=== PATIENT | male | born 1970 | race Caucasian/White ===

== ENCOUNTER 2023-07-24 07:50 | Emergency (ER) | payer BC ==
[2023-07-24] MEDS ORDERED: FAMOTIDINE 20 MG/2 ML VIAL IV ONE (08:24)
[2023-07-24] MEDS ORDERED: ONDANSETRON 4 MG/2 ML VIAL ONE ×2 (08:24→10:39)
[2023-07-24] MEDS ORDERED: MORPHINE 4 MG/ML SYR ONE (08:24)
[2023-07-24] MEDS ORDERED: NA CHLORIDE 0.9% 1,000 ML ONE (08:25)
[2023-07-24 08:34] LABS: Absolute Lymphocytes (CBC) 1.6 K/uL (0.7-4.9); Hematocrit 44.6 % (39.6-49.0); Lymphocytes % 13.7 % (15.3-44.8); MCV 84.5 fL (80-100); MPV 7.6 fL (7.6-11.3); Platelets 175 thou/uL (152-406); RBC Red Blood Cell Count 5.28 M/uL (4.33-5.43)
[2023-07-24 08:52] LABS: Albumin 4.5 g/dL (3.4-5.0); Bilirubin Total 0.5 mg/dL (0.2-1.0); Potassium 3.7 mEq/L (3.5-5.1); Protein, Total 8.3 g/dL (6.4-8.2)
--- NOTE | 2023-07-24 09:29 | RAD REPORT ---
EXAM DESCRIPTION: CT - Abdomen Pelvis W Contrast - 07/24/2023 9:14 am CLINICAL HISTORY: ABD PAIN COMPARISON: No comparisons TECHNIQUE: Thin cut axial CT imaging of the abdomen and pelvis was performed following intravenous a dministration of 95 mL Isovue 300. Multiplanar reformats were generated and reviewed. All CT scans are performed using dose optimization technique as appropriate and may include automated exposure control or mA/KV adjustment according to patient size. FINDINGS: No suspicious findings in the lung bases. The liver, spleen, and pancreas show no suspicious findings. Gallbladder and biliary tree are also wi thout suspicious finding. Symmetric renal function is seen with no hydronephrosis or suspicious renal mass. No dilated bowel loops or bowel wall thickening. No free air, free fluid or inflammatory stranding. L ower abdominal ventral hernia mesh repair noted. No hernia, mass or bulky lymphadenopathy. The urinar y bladder is without significant finding. No suspicious bony findings. IMPRESSION: No acute intra-abdominal process.
--- NOTE | 2023-07-24 10:08 | ER ---
Nurse's Notes [facility] Name: Adis Hallman Age: 53 yrs Sex: Male : 1970 Arrival Date: 07/24/2023 Time: 07:50 Bed 7 Private MD: Diagnosis: Epigastric abdominal tenderness;Vomiting;Abdominal tenderness Presentation: 07/24 08:05 Chief complaint: Patient states: N/V/D x 3 days post GI study. Coronavirus screen: At this time, the client does not indicate any symptoms associated with coronavirus-19. Ebola Screen: No symptoms or risks identified at this time. Initial Sepsis Screen: Does the patient meet any 2 criteria? No. Patient's initial sepsis screen is negative. Does the patient have a suspected source of infection? No. Patient's initial sepsis screen is negative. Risk Assessment: Do you want to hurt yourself or someone else? Patient reports no desire to harm self or others. Onset of symptoms was July 21, 2023. 08:05 Method Of Arrival: Ambulatory 08:05 Acuity: JERRY 3 hb Triage Assessment: 08:06 General: Appears in no apparent distress. uncomfortable, Behavior is cooperative, hb anxious, restless. Pain: Complains of pain in abdomen Pain currently is 9 out of 10 on a pain scale. Neuro: Level of Consciousness is awake, alert, obeys commands, Oriented to person, place, time, situation. Cardiovascular: Patient's skin is warm and dry. Respiratory: Airway is patent Respiratory effort is even, unlabored, Respiratory pattern is regular, symmetrical. GI: Reports diarrhea, nausea, vomiting. Derm: Skin is pink, warm \T\ dry. Historical: - Allergies: 08:06 No Known Allergies; hb - Home Meds: 08:06 None [Active]; hb - PMHx: 08:06 Hypertensive disorder; hb - Immunization history:: Adult Immunizations unknown. - Social history:: Smoking status: Patient denies any tobacco usage or history of. Screenin:29 [facility] ED Fall Risk Assessment (Adult) History of falling in the last 3 months, ph including since admission No falls in past 3 months (0 pts) Confusion or Disorientation No (0 pts) Intoxicated or Sedated No (0 pts) Impaired Gait No (0 pts). Abuse screen: Denies threats or abuse. Denies injuries from another. Nutritional screening: No deficits noted. Tuberculosis screening: No symptoms or risk factors identified. Assessment: 08:35 General: Appears in no apparent distress. uncomfortable, Behavior is calm, cooperative, ph appropriate for age. Pain: Complains of pain in epigastric area, right upper quadrant and left upper quadrant. Neuro: Puentes Agitation-Sedation Scale (RASS): +1 Restless Level of Consciousness is awake, alert, obeys commands, Oriented to person, place, time, situation. 09:45 Reassessment: Patient appears in no apparent distress at this time. Patient and/or hb family updated on plan of care and expected duration. Pain level reassessed. Patient is alert, oriented x 3, equal unlabored respirations, skin warm/dry/pink. Vital Signs: 08:05 BP 188 / 107; Pulse 51; Resp 17; Temp 98.1; Pulse Ox 100% ; Weight 81.65 kg; Height 5 hb ft. 9 in. ; Pain 9/10; 08:37 BP 124 / 96; Pulse 54; Resp 18; Pulse Ox 98% on R/A; ph 09:45 BP 128 / 88; Pulse 56; Resp 16; Pulse Ox 100% ; hb 10:30 BP 129 / 78; Pulse 58; Resp 18; Temp 97.9; Pulse Ox 99% on R/A; ph 08:05 Body Mass Index 26.58 (81.65 kg, 175.26 cm) hb 08:05 Pain Scale: Adult hb ED Course: 07:52 Patient arrived in ED. mr 07:57 eTjas Hayden MD is Attending Physician. [facility] 08:00 Kaitlynn Gonzales, RN is Primary Nurse. ph 08:06 Triage completed. hb 08:06 Arm band placed on right wrist. hb 08:29 CBC with Diff Sent. hb 08:29 CMP Sent. hb 08:29 Lipase Sent. hb 08:33 Initial lab(s) drawn, by me, sent to lab. EKG done, by ED staff, reviewed by Tejas Hayden MD. Inserted saline lock: 22 gauge in right antecubital area, using aseptic technique. Blood collected. 08:37 Patient has correct armband on for positive identification. Placed in gown. Bed in low ph position. Call light in reach. Side rails up X2. Pulse ox on. NIBP on. Door closed. Noise minimized. Warm blanket given. 09:15 CT Abd/Pelvis - IV Contrast Only In Process Unspecified. EDMS 10:07 Antonio Carmichael MD is Referral Physician. mechelle 11:14 No provider procedures requiring assistance completed. IV discontinued, intact, ph bleeding controlled, No redness/swelling at site. Pressure dressing applied. Administered Medications: 08:30 Drug: NS 0.9% IV 1000 ml Route: IV; Rate: 1 bolus; Site: right antecubital; ph 10:00 Follow up: Response: No adverse reaction; IV Status: Completed infusion ph 08:30 Drug: Famotidine IVP 20 mg Route: IVP; Site: right antecubital; ph 08:45 Follow up: Response: No adverse reaction ph 08:30 Drug: Ondansetron IVP 4 mg Route: IVP; Site: right antecubital; ph 08:45 Follow up: Response: No adverse reaction ph 08:30 Drug: morphine IVP or IV 4 mg Route: IVP; Infused Over: 4 mins; Site: right antecubital;ph 08:45 Follow up: Response: No adverse reaction; Pain is decreased ph 10:43 Drug: fentaNYL (PF) IVP 50 mcg Route: IVP; Site: right antecubital; ph 11:00 Follow up: Response: No adverse reaction ph 10:43 Drug: Ondansetron IVP 4 mg Route: IVP; Site: right antecubital; ph 11:00 Follow up: Response: No adverse reaction ph 10:43 Drug: GI Cocktail without - (Maalox PO Suspension 30 ml, Lidocaine Mucous ph Membrane Liquid 2 % 15 ml) Route: PO; 11:00 Follow up: Response: No adverse reaction ph 10:43 Drug: Pantoprazole IVP 40 mg Route: IVP; Site: right antecubital; ph 11:00 Follow up: Response: No adverse reaction ph Medication: 08:33 VIS not applicable for this client. ph Outcome: 10:08 Discharge ordered by . mechelle 11:14 Patient left the ED. ph 11:14 Discharged to home ambulatory, with family. ph 11:14 Condition: good 11:14 Discharge instructions given to patient, family, Instructed on discharge instructions, follow up and referral plans. medication usage, Demonstrated understanding of instructions, follow-up care, medications, Prescriptions given X 2. Signatures: Dispatcher [employer] Tejas Singh MD MD cha Rivera, mr Kaitlynn Gonzales RN RN Patti Mitchell RN RN hb
--- NOTE | 2023-07-24 10:08 | EDPHYS ---
Physician Documentation [facility] Name: Adis Hallman Age: 53 yrs Sex: Male : 1970 Arrival Date: 07/24/2023 Time: 07:50 Bed 7 Private MD: JEANINE Physician Tejas Hayden HPI: 07/24 10:02 This 53 yrs old Male presents to ER via Ambulatory with complaints of mechelle Abdominal Pain, Vomiting. 10:02 The patient presents to the emergency department with nausea, vomiting, that is mechelle intermittent, abdominal pain, of the epigastric area, right upper quadrant and left upper quadrant. Onset: The symptoms/episode began/occurred 1 day(s) ago. Possible causes: unknown. The symptoms are aggravated by food , The symptoms are alleviated by nothing. remaining still. Associated signs and symptoms: The patient has no apparent associated signs or symptoms. Severity of symptoms: At their worst the symptoms were mild in the emergency department the symptoms are unchanged. The patient has experienced similar episodes in the past, a few times. Historical: - Allergies: 08:06 No Known Allergies; hb - Home Meds: 08:06 None [Active]; hb - PMHx: 08:06 Hypertensive disorder; hb - Immunization history:: Adult Immunizations unknown. - Social history:: Smoking status: Patient denies any tobacco usage or history of. ROS: 10:04 Constitutional: Negative for fever, chills, and weight loss, Eyes: Negative for injury, mechelle pain, redness, and discharge, ENT: Negative for injury, pain, and discharge, Neck: Negative for injury, pain, and swelling, Cardiovascular: Negative for chest pain, palpitations, and edema, Respiratory: Negative for shortness of breath, cough, wheezing, and pleuritic chest pain, Back: Negative for injury and pain, : Negative for injury, bleeding, discharge, and swelling, MS/Extremity: Negative for injury and deformity, Skin: Negative for injury, rash, and discoloration, Neuro: Negative for headache, weakness, numbness, tingling, and seizure, Psych: Negative for depression, anxiety, suicide ideation, homicidal ideation, and hallucinations, Allergy/Immunology: Negative for hives, rash, and allergies, Endocrine: Negative for neck swelling, polydipsia, polyuria, polyphagia, and marked weight changes, Hematologic/Lymphatic: Negative for swollen nodes, abnormal bleeding, and unusual bruising. 10:04 Abdomen/GI: Positive for abdominal pain, of the epigastric area, right upper quadrant and left upper quadrant. Exam: 10:04 Constitutional: This is a well developed, well nourished patient who is awake, alert, mechelle and in no acute distress. Head/Face: Normocephalic, atraumatic. Eyes: Pupils equal round and reactive to light, extra-ocular motions intact. Lids and lashes normal. Conjunctiva and sclera are non-icteric and not injected. Cornea within normal limits. Periorbital areas with no swelling, redness, or edema. ENT: Nares patent. No nasal discharge, no septal abnormalities noted. Tympanic membranes are normal and external auditory canals are clear. Oropharynx with no redness, swelling, or masses, exudates, or evidence of obstruction, uvula midline. Mucous membranes moist. Neck: Trachea midline, no thyromegaly or masses palpated, and no cervical lymphadenopathy. Supple, full range of motion without nuchal rigidity, or vertebral point tenderness. No Meningismus. Chest/axilla: Normal chest wall appearance and motion. Nontender with no deformity. No lesions are appreciated. Cardiovascular: Regular rate and rhythm with a normal S1 and S2. No gallops, murmurs, or rubs. Normal PMI, no JVD. No pulse deficits. Respiratory: Lungs have equal breath sounds bilaterally, clear to auscultation and percussion. No rales, rhonchi or wheezes noted. No increased work of breathing, no retractions or nasal flaring. Back: No spinal tenderness. No costovertebral tenderness. Full range of motion. Male : Normal genitalia with no discharge or lesions. Skin: Warm, dry with normal turgor. Normal color with no rashes, no lesions, and no evidence of cellulitis. MS/ Extremity: Pulses equal, no cyanosis. Neurovascular intact. Full, normal range of motion. Neuro: Awake and alert, GCS 15, oriented to person, place, time, and situation. Cranial nerves II-XII grossly intact. Motor strength 5/5 in all extremities. Sensory grossly intact. Cerebellar exam normal. Normal gait. Psych: Awake, alert, with orientation to person, place and time. Behavior, mood, and affect are within normal limits. 10:04 ECG was reviewed by the Attending Physician. 10:04 Abdomen/GI: Inspection: abdomen appears normal, Bowel sounds: normal, Palpation: mild abdominal tenderness, in the epigastric area and left upper quadrant, Liver: no appreciated palpable abnormalities, Hernia: not appreciated. Vital Signs: 08:05 BP 188 / 107; Pulse 51; Resp 17; Temp 98.1; Pulse Ox 100% ; Weight 81.65 kg; Height 5 hb ft. 9 in. ; Pain 9/10; 08:37 BP 124 / 96; Pulse 54; Resp 18; Pulse Ox 98% on R/A; ph 09:45 BP 128 / 88; Pulse 56; Resp 16; Pulse Ox 100% ; hb 10:30 BP 129 / 78; Pulse 58; Resp 18; Temp 97.9; Pulse Ox 99% on R/A; ph 08:05 Body Mass Index 26.58 (81.65 kg, 175.26 cm) hb 08:05 Pain Scale: Adult hb MDM: 07:57 Patient medically screened. [facility] 10:05 Differential diagnosis: Nonspecific abd pain, gastritis, cholecystitis, pancreatitis, mechelle diverticulitis, viral gastroenteritis, gastroenteritis. Data reviewed: vital signs, nurses notes, lab test result(s), EKG, radiologic studies, CT scan. Consideration of Admission/Observation Escalation of care including admission/observation considered. I considered the following discharge prescriptions or medication management in the emergency department Medications were administered in the Emergency Department. See MAR. Independent interpretation of the following test(s) in the Emergency Department EKG: See my EKG interpretation above. Test considered but Not performed:. Care significantly affected by the following chronic conditions: Hypertension. 07/24 07:59 Order name: CBC with Diff; Complete Time: 08:47 [facility] 07/24 07:59 Order name: CMP; Complete Time: 10:51 [facility] 07/24 07:59 Order name: Lipase; Complete Time: 10:51 [facility] 07/24 10:07 Order name: LAB Add On: ALREADY NOTIFIED CHRISTIANE/ SEND LABEL TO LAB eb 07/24 10:11 Order name: Troponin High Sensitivity; Complete Time: 10:51 EDMS 07/24 07:59 Order name: CT Abd/Pelvis - IV Contrast Only; Complete Time: 09:46 [facility] 07/24 07:59 Order name: EKG; Complete Time: 07:59 [facility] 07/24 07:59 Order name: IV Saline Lock; Complete Time: 08: [facility] 07/24 07:59 Order name: Labs collected and sent; Complete Time: [facility] 07/24 07:59 Order name: EKG - Nurse/Tech; Complete Time: : [facility] EC:04 Rate is 50 beats/min. Rhythm is regular. QRS [place] is Normal. NV interval is normal. QRS mechelle interval is normal. QT interval is normal. No Q waves. T waves are Normal. No ST changes noted. Clinical impression: Sinus bradycardia and No evidence of ischemia. Interpreted by me. Reviewed by me. Administered Medications: 08:30 Drug: NS 0.9% IV 1000 ml Route: IV; Rate: 1 bolus; Site: right antecubital; ph 10:00 Follow up: Response: No adverse reaction; IV Status: Completed infusion ph 08:30 Drug: Famotidine IVP 20 mg Route: IVP; Site: right antecubital; ph 08:45 Follow up: Response: No adverse reaction ph 08:30 Drug: Ondansetron IVP 4 mg Route: IVP; Site: right antecubital; ph 08:45 Follow up: Response: No adverse reaction ph 08:30 Drug: morphine IVP or IV 4 mg Route: IVP; Infused Over: 4 mins; Site: right antecubital;ph 08:45 Follow up: Response: No adverse reaction; Pain is decreased ph 10:43 Drug: fentaNYL (PF) IVP 50 mcg Route: IVP; Site: right antecubital; ph 11:00 Follow up: Response: No adverse reaction ph 10:43 Drug: Ondansetron IVP 4 mg Route: IVP; Site: right antecubital; ph 11:00 Follow up: Response: No adverse reaction ph 10:43 Drug: GI Cocktail without - (Maalox PO Suspension 30 ml, Lidocaine Mucous ph Membrane Liquid 2 % 15 ml) Route: PO; 11:00 Follow up: Response: No adverse reaction ph 10:43 Drug: Pantoprazole IVP 40 mg Route: IVP; Site: right antecubital; ph 11:00 Follow up: Response: No adverse reaction ph Disposition Summary: 07/24/23 10:08 Discharge Ordered Location: Home mechelle Problem: new mechelle Symptoms: have improved mechelle Condition: Stable mechelle Diagnosis - Epigastric abdominal tenderness mechelle - Vomiting mechelle - Abdominal tenderness mechelle Followup: mechelle - With: Private Physician - When: 2 - 3 days - Reason: Recheck today's complaints, Continuance of care, Re-evaluation by your physician Followup: mechelle - With: Antonio Carmichael MD - When: 2 - 3 days - Reason: Recheck today's complaints, Re-evaluation by your physician Discharge Instructions: - Discharge Summary Sheet mechelle - Abdominal Pain, Adult mechelle - Nausea and Vomiting, Adult mechelle - Nausea and Vomiting, Adult, [id number] mechelle - Abdominal Pain, Adult, [id number] [facility] Forms: - Medication Reconciliation Form [facility] - Thank You Letter [facility] - Antibiotic Education [facility] - Prescription Opioid Use mechelle - Patient Portal Instructions [facility] - Leadership Thank You Letter [facility] Prescriptions: - ondansetron 4 mg Oral Tablet,disintegrating - take 1 tablet by ORAL route every 6-8 hours for 5 days as needed for nausea and mechelle vomiting; 20 tablet; Refills: 0, Product Selection Permitted - Protonix 40 mg Oral Tablet - take 1 tablet by ORAL route once daily; 30 tablet; Refills: 0, Product [facility] Selection Permitted - dicyclomine 10 mg/5 mL Oral Solution - take 10 milliliters by ORAL route 4 times per day; 200 milliliter; Refills: 0, mechelle Product Selection Permitted Signatures: Dispatcher [employer] Tejas Singh MD MD cha Hall, Patricia, RN RN Patti Mitchell RN RN
[2023-07-24] MEDS ORDERED: MAGNES/ALUMIN/SIMET 30ML UCUP ONE (10:38)
[2023-07-24] MEDS ORDERED: FENTANYL CITR 100 MCG/2 ML ONE (10:39)
[2023-07-24] MEDS ORDERED: PANTOPRAZOLE 40 MG INJ ONE (10:40)
[2023-07-24 11:33] VITALS: TEMP 98.1
[2023-07-24 11:44] VITALS: BP 128/88; O2SAT 100
--- NOTE | 2023-07-25 12:15 | EKG ---
Test Date: 2023-07-24 Test Time: 08:22:32 Rn Or Lvn: HB MEASUREMENT RESULTS: Intervals: Rate: 50 OK: 136 QRSD: 94 QT: 420 QTc: 382 [place]: P: 10 OK: 136 QRS: 74 T: 89 INTERPRETIVE STATEMENTS: Sinus bradycardia Nonspecific ST abnormality Abnormal ECG No previous ECG available for comparison Electronically Signed On 07-25-23 12:12:48 CDT by Vishnu Shaffer
== END 2023-07-24 11:14 | disposition home or self-care (01) ==
LOC: ER 07:50 → EDBD 07:50 → ER 11:14
DX: R10.816 Epigastric abdominal tenderness (principal); R11.10 Vomiting, unspecified; I10 Essential (primary) hypertension
CPT/HCPCS: 96361; 93005; 85025; 36415; 84484; 83690; 80053; 74177; 96375; 96374; 99285; Q9967; C9113; J3010; J2405 ×2; J7030

== ENCOUNTER 2023-07-26 04:08 | Emergency (ER) | payer BC ==
--- OUTSIDE RECORDS SUMMARY | 2023-07-26 04:11 | XMS REPORT | Continuity of Care Document ---
:1970 Author Organization [facility] t Address [address] [place] [address] [address] [place] [address] Care Team Providers Name Role Phone JAIME TELLO Primary Care Physician Unavailable DR JAIME TELLO Attending Clinician Unavailable [phone] Attending Clinician Unavailable VIKI BRUSH Attending Clinician Unavailable CORI TA Attending Clinician Unavailable dot Attending Clinician Unavailable JAIME TELLO Attending Clinician Unavailable JALEN WEATHERS Attending Clinician Unavailable OLIVIA MAHAJAN Attending Clinician Unavailable DR JAIME TELLO Admitting Clinician Unavailable dot Admitting Clinician Unavailable Payers Payer Name Policy Type Policy Number Effective Date Expiration Date S jon [facility] [id number] [facility] - [id number] CHOICE PLUS Problems This patient has no known problems. Allergies, Adverse Reactions, Alerts This patient has no known allergies or adverse reactions. Medications This patient has no known medications. Procedures This patient has no known procedures. Encounters Start End Encounter Admission Attending Care Care Encounter Source Date/Time Date/Time Type Type Clinicians Facility Department ID 2023-05-03 Outpatient JAIME TELLO [facility] 00 [id number] El 14:53:38 [id number] [facility] 2023-07-24 2023-07-24 emergency [id number] 06:53:00 07:08:00 [id number] 2023-07-24 2023-07-24 Emergency ER CATANESCU, [facility] [id number] [place] 06:53:00 07:08:00 VIKI [id number] formerly [facility] 2023-05-17 2023-05-17 Outpatient CORI WHIPPLE [facility] [id number] [place] 11:01:00 11:01:00 [id number] formerly [facility] 2023-05-03 2023-05-03 [facility] [id number] 14:54:00 14:54:00 [id number] [facility] 2020-10-15 2020-10-15 Outpatient agapito [facility] [id number] [place] 02:40:00 02:40:00 [facility] 2019-08-23 2019-08-23 Outpatient SEB TELLO [facility] [id number] [place] 08:03:00 08:03:00 JAIME [id number] formerly [facility] 2018-08-14 2018-08-14 Outpatient SEB TELLO [facility] [id number] [place] 08:45:00 08:45:00 JAIME [id number] formerly [facility] 2016-07-26 2016-07-26 Outpatient SEB TELLO [facility] [id number] [place] 11:31:00 11:31:00 JAIME [id number] formerly [facility] 2016-03-22 2016-03-22 Emergency ER OWALON HarveyS [facility] [id number] [place] 18:45:00 20:23:00 [id number] formerly [facility] 2014-07-24 2014-07-24 Outpatient SEB TELLO [facility] [id number] [place] 07:24:00 07:24:00 JAIME [id number] formerly [facility] 2014-02-27 2014-02-27 Outpatient SEB MAHAJAN, [facility] [id number] [place] 13:46:00 13:46:00 OLIVIA -[id number] formerly [facility] Results This patient has no known results.
[2023-07-26] MEDS ORDERED: DIPHENHYDRAMINE 50 MG/ML VIAL ONE (04:38)
[2023-07-26] MEDS ORDERED: FAMOTIDINE 20 MG/2 ML VIAL IV ONE (04:38)
[2023-07-26] MEDS ORDERED: METHYLPREDNISOLONE 125 MG INJ ONE (04:38)
[2023-07-26] MEDS ORDERED: predniSONE 20 MG TAB ONE (04:38)
[2023-07-26] MEDS ORDERED: NA CHLORIDE 0.9% 1,000 ML ONE (04:39)
[2023-07-26] MEDS ORDERED: ONDANSETRON 4 MG/2 ML VIAL ONE (04:49)
--- NOTE | 2023-07-26 04:55 | ER ---
Nurse's Notes [facility] Name: Adis Hallman Age: 53 yrs Sex: Male : 1970 Arrival Date: 07/26/2023 Time: 04:08 Bed 5 Private MD: Diagnosis: Urticaria, unspecified;Allergy status to unspecified drugs, medicaments and biological substances status-BENTYL/DICYCLOMINE Presentation: 07/26 04:20 Chief complaint: Patient states: I just started taking Bentyl and about 30 minutes vc1 after I took one I started itching then I broke out in hives. It happened about 30 hours ago but now it has spread to my face and lips so I thought it was time to come in. 04:20 Coronavirus screen: Vaccine status: Patient reports being unvaccinated. Client denies vc1 travel out of the [place] in the last 14 days. At this time, the client does not indicate any symptoms associated with coronavirus-19. Ebola Screen: Patient negative for fever greater than or equal to 101.5 degrees Fahrenheit, and additional compatible Ebola Virus Disease symptoms Patient denies exposure to infectious person. Patient denies travel to an Ebola-affected area in the 21 days before illness onset. No symptoms or risks identified at this time. Onset: The symptoms/episode began/occurred gradually, 30 hour(s) ago, and became worse last night. Anaphylaxis evaluation, no signs or symptoms of anaphylaxis were noted. Initial Sepsis Screen: Does the patient meet any 2 criteria? No. Patient's initial sepsis screen is negative. Does the patient have a suspected source of infection? No. Patient's initial sepsis screen is negative. Risk Assessment: Do you want to hurt yourself or someone else? Patient reports no desire to harm self or others. Onset of symptoms was July 24, 2023. 04:20 Method Of Arrival: Ambulatory vc1 04:20 Acuity: JERRY 3 vc1 Triage Assessment: 04:20 General: Appears in no apparent distress. uncomfortable, Behavior is calm, cooperative, vc1 appropriate for age. Pain: Complains of pain in all over from hives and swelling. EENT: No deficits noted. No signs and/or symptoms were reported regarding the EENT system. Neuro: Level of Consciousness is awake, alert, obeys commands, Oriented to person, place, time, situation, Appropriate for age. Cardiovascular: No deficits noted. Respiratory: Airway is patent Respiratory effort is even, unlabored, Respiratory pattern is regular, symmetrical. GI: No deficits noted. No signs and/or symptoms were reported involving the gastrointestinal system. : No deficits noted. No signs and/or symptoms were reported regarding the genitourinary system. Derm: Rash noted that is itchy, urticaria, Reports itching, pain that is 5 out of 10 on a pain scale. Musculoskeletal: No deficits noted. No signs and/or symptoms reported regarding the musculoskeletal system. Historical: - Allergies: 04:20 Bentyl (Hives); vc1 - PMHx: 04:20 Hypertensive disorder; Chron's disease; Diverticulitis; vc1 - PSHx: 04:20 Hernia repair; vc1 - Immunization history:: Client reports having NOT received the Covid vaccine. - Social history:: Smoking status: Patient denies any tobacco usage or history of. Patient uses street drugs, marijuana. - Family history:: not pertinent. Screenin:20 [facility] ED Fall Risk Assessment (Adult) History of falling in the last 3 months, vc1 including since admission No falls in past 3 months (0 pts) Confusion or Disorientation No (0 pts) Intoxicated or Sedated No (0 pts) Impaired Gait No (0 pts) Mobility Assist Device Used No (0 pt) Altered Elimination No (0 pt) Score/Fall Risk Level 0 - 2 = Low Risk Oriented to surroundings, Maintained a safe environment, Educated pt \T\ family on fall prevention, incl call for assistance when getting out of bed. Abuse screen: Denies threats or abuse. Nutritional screening: No deficits noted. Tuberculosis screening: No symptoms or risk factors identified. Vital Signs: 04:20 BP 139 / 66; Pulse 76; Resp 19; Temp 98.2; Pulse Ox 98% ; Weight 81.65 kg; Height 5 ft. vc1 9 in. ; Pain 5/10; 04:45 BP 132 / 78; Pulse 74; Resp 18; Pulse Ox 99% ; vc1 04:20 Body Mass Index 26.58 (81.65 kg, 175.26 cm) vc1 04:20 Pain Scale: Adult vc1 ED Course: 04:10 Patient arrived in ED. ag3 04:11 Tejas Hayden MD is Attending Physician. mechelle 04:20 Arm band placed on left wrist. vc1 04:20 Patient has correct armband on for positive identification. Bed in low position. Adult vc1 w/ patient. Pulse ox on. NIBP on. 04:30 Inserted saline lock: 20 gauge in right antecubital area, using aseptic technique. vc1 Blood collected. 04:52 Triage completed. vc1 06:20 No provider procedures requiring assistance completed. IV discontinued, intact, vc1 bleeding controlled, No redness/swelling at site. Pressure dressing applied. 06:21 Provided Education on: return to ER if use Epi pen. vc1 Administered Medications: 04:30 Drug: NS 0.9% IV 1000 ml Route: IV; Rate: 1 bolus; Site: right antecubital; vc1 04:30 Drug: diphenhydrAMINE IVP 50 mg Route: IVP; Site: right antecubital; vc1 04:30 Drug: Famotidine IVP 40 mg Route: IVP; Site: right antecubital; vc1 04:30 Drug: MethylPrednisoLONE IVP 125 mg Route: IVP; Site: right antecubital; vc1 04:30 Drug: predniSONE PO 60 mg Route: PO; vc1 04:35 Drug: Ondansetron IVP 4 mg Route: IVP; Site: right antecubital; vc1 Medication: 04:57 VIS not applicable for this client. vc1 Outcome: 04:55 Discharge ordered by . [facility] [place] 06:20 Discharged to home ambulatory, with significant other. vc1 06:20 Condition: good 06:20 Discharge instructions given to patient, Instructed on discharge instructions, follow up and referral plans. medication usage, Demonstrated understanding of instructions, follow-up care, medications, Prescriptions given X 4. 06:21 Patient left the ED. vc1 Signatures: Tejas Hayden MD MD cha Gomez, Alice ag3 Fanta Llamas, RN RN vc1
--- NOTE | 2023-07-26 04:56 | EDPHYS ---
Physician Documentation [facility] Name: Adis Hallman Age: 53 yrs Sex: Male : 1970 Arrival Date: 07/26/2023 Time: 04:08 Bed 5 Private MD: ED Physician Tejas Hayden HPI: 07/26 04:49 This 53 yrs old Male presents to ER via Unassigned with complaints of Facial mechelle Swelling, Allergic Reaction. 04:49 The patient presents with difficulty swallowing, diffuse swelling, rash, redness of mechelle skin, swelling of the lips. Onset: The symptoms/episode began/occurred 1 day(s) ago. Associated signs and symptoms: The patient has no apparent associated signs or symptoms. Possible causes: bentyl. At home the patient or guardian has treated the symptoms with nothing. Severity of symptoms: At their worst the symptoms were mild moderate in the emergency department the symptoms are unchanged. The patient has not experienced similar symptoms in the past. Historical: - Allergies: 04:20 Bentyl (Hives); vc1 - PMHx: 04:20 Hypertensive disorder; Chron's disease; Diverticulitis; vc1 - PSHx: 04:20 Hernia repair; vc1 - Immunization history:: Client reports having NOT received the Covid vaccine. - Social history:: Smoking status: Patient denies any tobacco usage or history of. Patient uses street drugs, marijuana. - Family history:: not pertinent. ROS: 04:50 Constitutional: Negative for fever, chills, and weight loss, Eyes: Negative for injury, mechelle pain, redness, and discharge, ENT: Negative for injury, pain, and discharge, Neck: Negative for injury, pain, and swelling, Cardiovascular: Negative for chest pain, palpitations, and edema, Respiratory: Negative for shortness of breath, cough, wheezing, and pleuritic chest pain, Abdomen/GI: Negative for abdominal pain, nausea, vomiting, diarrhea, and constipation, Back: Negative for injury and pain, : Negative for injury, bleeding, discharge, and swelling, MS/Extremity: Negative for injury and deformity, Neuro: Negative for headache, weakness, numbness, tingling, and seizure, Psych: Negative for depression, anxiety, suicide ideation, homicidal ideation, and hallucinations, Allergy/Immunology: Negative for hives, rash, and allergies, Endocrine: Negative for neck swelling, polydipsia, polyuria, polyphagia, and marked weight changes, Hematologic/Lymphatic: Negative for swollen nodes, abnormal bleeding, and unusual bruising. 04:50 Skin: Positive for erythema, rash. Exam: 04:50 Constitutional: This is a well developed, well nourished patient who is awake, alert, mechelle and in no acute distress. Head/Face: Normocephalic, atraumatic. Eyes: Pupils equal round and reactive to light, extra-ocular motions intact. Lids and lashes normal. Conjunctiva and sclera are non-icteric and not injected. Cornea within normal limits. Periorbital areas with no swelling, redness, or edema. ENT: Nares patent. No nasal discharge, no septal abnormalities noted. Tympanic membranes are normal and external auditory canals are clear. Oropharynx with no redness, swelling, or masses, exudates, or evidence of obstruction, uvula midline. Mucous membranes moist. Neck: Trachea midline, no thyromegaly or masses palpated, and no cervical lymphadenopathy. Supple, full range of motion without nuchal rigidity, or vertebral point tenderness. No Meningismus. Chest/axilla: Normal chest wall appearance and motion. Nontender with no deformity. No lesions are appreciated. Cardiovascular: Regular rate and rhythm with a normal S1 and S2. No gallops, murmurs, or rubs. Normal PMI, no JVD. No pulse deficits. Respiratory: Lungs have equal breath sounds bilaterally, clear to auscultation and percussion. No rales, rhonchi or wheezes noted. No increased work of breathing, no retractions or nasal flaring. Abdomen/GI: Soft, non-tender, with normal bowel sounds. No distension or tympany. No guarding or rebound. No evidence of tenderness throughout. Back: No spinal tenderness. No costovertebral tenderness. Full range of motion. Male : Normal genitalia with no discharge or lesions. MS/ Extremity: Pulses equal, no cyanosis. Neurovascular intact. Full, normal range of motion. Neuro: Awake and alert, GCS 15, oriented to person, place, time, and situation. Cranial nerves II-XII grossly intact. Motor strength 5/5 in all extremities. Sensory grossly intact. Cerebellar exam normal. Normal gait. Psych: Awake, alert, with orientation to person, place and time. Behavior, mood, and affect are within normal limits. 04:50 Skin: Appearance: Color: erythematous, Temperature: normal temperature, Moisture: normal moisture, petechiae, not noted, ecchymosis, not noted, diaphoresis is not appreciated, urticaria. Vital Signs: 04:20 BP 139 / 66; Pulse 76; Resp 19; Temp 98.2; Pulse Ox 98% ; Weight 81.65 kg; Height 5 ft. vc1 9 in. ; Pain 5/10; 04:45 BP 132 / 78; Pulse 74; Resp 18; Pulse Ox 99% ; vc1 04:20 Body Mass Index 26.58 (81.65 kg, 175.26 cm) vc1 04:20 Pain Scale: Adult vc1 MDM: 04:12 Patient medically screened. [facility] 04:52 Differential diagnosis: bronchospasm, non IgE mediated drug reaction urticaria. Data [facility] reviewed: vital signs, nurses notes, lab test result(s). Consideration of Admission/Observation Escalation of care including admission/observation considered. I considered the following discharge prescriptions or medication management in the emergency department Medications were administered in the Emergency Department. See MAR. Test considered but Not performed: X-ray: no cxr. Care significantly affected by the following chronic conditions: none. Counseling: I had a detailed discussion with the patient and/or guardian regarding the historical points, exam findings, and any diagnostic results supporting the discharge/admit diagnosis, lab results, the need for outpatient follow up, for definitive care, an allergy/sales support specialist, a family practitioner. 07/26 04:12 Order name: CBC with Diff; Complete Time: : [facility] 07/26 04:12 Order name: Comprehensive Metabolic Panel; Complete Time: : [facility] Administered Medications: 04:30 Drug: NS 0.9% IV 1000 ml Route: IV; Rate: 1 bolus; Site: right antecubital; vc1 04:30 Drug: diphenhydrAMINE IVP 50 mg Route: IVP; Site: right antecubital; vc1 04:30 Drug: Famotidine IVP 40 mg Route: IVP; Site: right antecubital; vc1 04:30 Drug: MethylPrednisoLONE IVP 125 mg Route: IVP; Site: right antecubital; vc1 04:30 Drug: predniSONE PO 60 mg Route: PO; vc1 04:35 Drug: Ondansetron IVP 4 mg Route: IVP; Site: right antecubital; vc1 Disposition Summary: 07/26/23 04:55 Discharge Ordered Location: Home [facility] Problem: new [facility] Symptoms: have improved [facility] Condition: Stable [facility] Diagnosis - Urticaria, unspecified [facility] - Allergy status to unspecified drugs, medicaments and biological substances status - mechelle BENTYL/DICYCLOMINE Followup: [facility] - With: Private Physician - When: 2 - 3 days - Reason: Recheck today's complaints, Continuance of care, Re-evaluation by your physician Discharge Instructions: - Discharge Summary Sheet [facility] - Drug Allergy, [id number] [facility] - Drug Allergy [facility] - Hives mechelle - Rash, Adult [facility] - Rash, Adult, [id number] [facility] - Hives, [id number] [facility] Forms: - Medication Reconciliation Form [facility] - Thank You Letter [facility] - Antibiotic Education [facility] - Prescription Opioid Use [facility] - Patient Portal Instructions [facility] - Leadership Thank You Letter [facility] Prescriptions: - EpiPen 0.3 mg/0.3 mL Injection Auto-Injector - administer 0.3 milliliter by INTRAMUSCULAR route once; 1 Pack; Refills: 0, [facility] Product Selection Permitted - Benadryl 25 mg Oral Capsule - take 2 capsule by ORAL route every 6 hours As needed; 36 tablet; Refills: 0, [facility] Product Selection Permitted - Pepcid 20 mg Oral Tablet - take 1 tablet by ORAL route every 12 hours for 21 days; 42 tablet; Refills: 0, [facility] Product Selection Permitted - Prednisone 20 mg Oral Tablet - take 2 tablets by ORAL route once daily for 5 days; 10 tablet; Refills: 0, [facility] Product Selection Permitted Signatures: Dispatcher [employer] Tejas Singh MD MD cha Calcote, Vanessa, RN RN vc1
[2023-07-26 05:19] LABS: Hematocrit 39.6 % (39.6-49.0); Lymphocytes % 9.4 % (15.3-44.8); MCV 84.3 fL (80-100); MPV 7.8 fL (7.6-11.3); Platelets 143 thou/uL (152-406)
[2023-07-26 05:28] LABS: Albumin 3.7 g/dL (3.4-5.0); Bilirubin Total 0.4 mg/dL (0.2-1.0); Potassium 3.8 mEq/L (3.5-5.1); Protein, Total 6.9 g/dL (6.4-8.2)
[2023-07-26 06:43] VITALS: TEMP 98.2
[2023-07-26 06:44] VITALS: BP 132/78; O2SAT 99
== END 2023-07-26 06:21 | disposition home or self-care (01) ==
LOC: ER 04:08
DX: L50.9 Urticaria, unspecified (principal); Z88.8 Allergy status to other drugs, medicaments and biological substances
CPT/HCPCS: 85025; 36415; 80053; 96375; 96374; 99284; J7512; J1200; J2930; J2405; J7030